=== PATIENT | male | born 1960 | race Caucasian/White ===

== ENCOUNTER 2016-12-14 16:53 | Emergency (ER) | payer BC ==
[~2016-12-14] VITALS: Ht 172.7 cm; Wt 79.5 kg
[2016-12-14 16:56] VITALS: TEMP 97.5
[2016-12-14] MEDS ORDERED: PHENERGAN W/CO120 M1 PO (17:36)
[2016-12-14] MEDS ORDERED: BENICAR HCT 12.1 TAB PO (17:36)
[2016-12-14] MEDS ORDERED: VENTOLIN0.09 MG IH (17:36)
[2016-12-14] MEDS ORDERED: MEXITIL 150MG150 MG PO (17:37)
[2016-12-14] MEDS ORDERED: BUSPAR10 MG PO (17:38)
[2016-12-14] MEDS ORDERED: ATIVAN 0.50.5 MG/TAB PO (17:38)
[2016-12-14] MEDS ORDERED: PRAVACHOL10 MG PO (17:39)
[2016-12-14] MEDS ORDERED: XARELTO20 MG PO (17:39)
[2016-12-14] MEDS ORDERED: PROTONIX 40MG T40 MG PO (17:39)
[2016-12-14 18:49] LABS: BASO # 0.1 (0.0-0.2); BASO % 0.5 % (0.0-2.0); EOS # 0.2 (0.0-0.7); EOS % 1.5 % (0-4.0); GRAN % 80.2 % (42.2-75.2); HEMATOCRIT 48.3 % (42.0-52.0); HEMOGLOBIN 16.7 g/dl (13.5-18.0); LYMPH # 1.6 (1.2-3.4); LYMPH % 10.6 % (20.0-51.0); MEAN CELL VOLUME 89 fl (80.0-100.0); MEAN CORPUSCULAR HEMOGLOBIN 31 pg (27.0-31.0); MEAN CORPUSCULAR HGB CONC 35 g/dl (33.0-37.0); MEAN PLATELET VOLUME 10.5 fl (7.4-10.4); MONO % 6.5 % (1.7-9.3); PLATELET COUNT 179 K/mm3 (130-400); RED BLOOD COUNT 5.42 M/mm3 (4.20-5.60); REDCELL DISTRIBUTION WIDTH-CV 12.4 % (11.5-14.5)
[2016-12-14 19:00] LABS: ADJUSTED CALCIUM 9.3 mg/dL (8.4-10.2); ALBUMIN 4.1 gm/dL (3.5-5.0); BILIRUBIN,TOTAL 1.2 mg/dL (0.0-1.0); CALCIUM 9.4 mg/dL (8.4-10.2); CREATININE, serum 1.01 mg/dL (0.66-1.25); POTASSIUM 3.7 mmol/L (3.4-5.0); TOTAL PROTEIN 7.4 gm/dL (6.4-8.2)
[2016-12-14 20:21] VITALS: BP 136/89; PULSE 74
== END 2016-12-14 20:43 | disposition short-term general hospital (02) ==
LOC: COL.ER 16:53
PROVIDERS: Emergency Medicine
DX: S52.022A Displaced fracture of olecranon process without intraarticular extension of left ulna, initial encounter for closed fracture (principal); S52.125A Nondisplaced fracture of head of left radius, initial encounter for closed fracture; S52.135A Nondisplaced fracture of neck of left radius, initial encounter for closed fracture; S09.90XA Unspecified injury of head, initial encounter; V18.0XXA Pedal cycle driver injured in noncollision transport accident in nontraffic accident, initial encounter; Y93.55 Activity, bike riding; Y92.414 Local residential or business street as the place of occurrence of the external cause; Z79.01 Long term (current) use of anticoagulants
CPT/HCPCS: J1170; J2405; J3010; J7030